=== PATIENT | female | born 1970 | race Two or more races ===

== ENCOUNTER 2017-12-25 17:34 | Emergency (ER) | payer SELFPAY ==
[~2017-12-25] VITALS: Ht 165.1 cm; Wt 75.0 kg
[2017-12-25] MEDS ORDERED: IBUPROFEN 600MG TABLET PO STA (18:40)
[2017-12-25 19:51] LABS: CLARITY URINE CLEAR (CLEAR); COLOR URINE YELLOW (YELLOW); KETONES URINE NEGATIVE (NEGATIVE); LEUKOCYTE ESTERASE URINE NEGATIVE (NEGATIVE); NITRITE URINE NEGATIVE (NEGATIVE); OCCULT BLOOD URINE NEGATIVE (NEGATIVE); PROTEIN URINE NEGATIVE (NEGATIVE); SPECIFIC GRAVITY URINE 1.012 (1.005-1.030); UROBILINOGEN URINE 0.2 E.U./dL (0.2-1.0)
[2017-12-25 22:06] VITALS: BP 96/61
== END 2017-12-25 22:33 | disposition home or self-care (01) ==
LOC: ER 17:34
DX: R10.31 Right lower quadrant pain (principal); Z98.84 Bariatric surgery status; Z98.890 Other specified postprocedural states
CPT/HCPCS: 74176; 81025; 99285